=== PATIENT | male | born 1970 | race Caucasian/White ===

== ENCOUNTER 2021-01-06 19:32 | Observation (INO) | payer SELFPAY ==
[~2021-01-06] VITALS: Ht 200.7 cm; Wt 78.0 kg
--- NOTE | 2021-01-06 19:59 | NUR ---
ASSUMED CARE OF PATIENT. PATIENT REPORTS HIS COUSIN LEFT HIM AT [facility]. PT HAS SEVERAL LARGE BAGS WITH HIM INCLUDING A TENT. PT REPORTS HE WAS LIVING WITH HIS COUSIN IN [facility] [facility] BUT IS NOW HOMELESS AND HAS NO WHERE TO GO. BELONGINGS LOCKED UP SEE BELONGINGS LIST. PT REPORTS HE HAS A HISTORY OF SI, PT HAS CUT HIMSELF BEFORE. PT'S PLAN TO HURT HIMSELF IS TO SHOOT HIMSELF, BUT REPORTS HE DOES NOT HAVE A GUN. PT DOES HAVE A HISTORY OF BIPOLAR AND REPORTS HE IS ON LITHIUM. VS STABLE. SITTER AT DOOR. PT SEEN BY CYNDY GRAY. WILL CONTINUE TO MONITOR.
[2021-01-06 20:13] LABS: MEAN CORPUSCULAR HGB CONC 34.1 g/dL (33.2-36.2); MEAN PLATELET VOLUME 10.3 fL (7.4-10.4); RED BLOOD COUNT 3.71 x10^6/uL (4.38-5.82); RED CELL DISTRIBUTION WIDTH 14.9 % (9.4-14.8)
--- NOTE | 2021-01-06 20:17 | NUR ---
UA SENT. PT'S MEDICATIONS LOCKED UP IN THE PHARMACY: LITHIUM, LEVETIRACETAM
[2021-01-06] MEDS ORDERED: LITH300C PO (20:20)
[2021-01-06] MEDS ORDERED: LEVE500T22 PO (20:20)
[2021-01-06 20:25] LABS: ALANINE AMINOTRANSFERASE 38 U/L (12-78); ALBUMIN 3.3 g/dL (3.4-5.0); CALCIUM 8.6 mg/dL (8.5-10.1); CHLORIDE 106 mmol/L (98-107); CREATININE 0.71 mg/dL (0.7-1.3)
[2021-01-06 20:36] LABS: ALKALINE PHOSPHATASE 162 U/L (45-117); ANION GAP 4 mmol/L (5-15); BILIRUBIN,TOTAL 1.1 mg/dL (0.2-1.0); TOTAL PROTEIN 7.4 g/dL (6.4-8.2)
[2021-01-06 20:37] LABS: PLATELET COUNT 72 x10^3/uL (130-400)
[2021-01-06 20:38] LABS: SALICYLATE LEVEL < 1.7 mg/dL (2.8-20.0)
[2021-01-06 20:39] LABS: AMPHETAMINE SCREEN, URINE Negative (Negative); BARBITURATE SCREEN, URINE Negative (Negative); BENZODIAZEPINE SCREEN, URINE Negative (Negative); CANNABINOID SCREEN, URINE Negative (Negative); COCAINE SCREEN, URINE Negative (Negative); METHADONE SCREEN, URINE Negative (Negative); OPIATE SCREEN, URINE Negative (Negative)
[2021-01-06 20:48] LABS: BAND#(MANUAL) 0.11 x10^3/uL; BANDS%(MANUAL) 4 % (0-7); EOS#(MANUAL) 0.03 x10^3/uL (0.0-0.4); EOS% (MANUAL) 1 % (1-7); LYMPH#(MANUAL) 0.81 x10^3/uL (1-3.4); LYMPHS% (MANUAL) 30 % (22-44); MONOS#(MANUAL) 0.24 x10^3/uL (0.3-2.7); MONOS% (MANUAL) 9 % (2-9); OTHER CELLS # (MANUAL) 0.05 x10^3/uL (0-0); OTHER CELLS % (MANUAL) 2 % (0-0); SEG#(MANUAL) 1.46 x10^3/uL (1.8-6.8); SEGS% (MANUAL) 54 % (42-75)
--- NOTE | 2021-01-06 20:48 | NUR ---
PT HAS BOOKS AT BEDSIDE AND IS READING. SITTER AT DOOR. NO ACUTE DISTRESS. PT IS IN A HOSPITAL: GOWN, SOCKS AND UNDERWEAR. VS STABLE. WILL CONTINUE TO MONITOR.
[2021-01-06 20:49] LABS: <PLATELET ESTIMATE> DECREASED; <PLT MORPHOLOGY> NORMAL PLT MORPH; <RBC MORPHOLOGY> NORMAL
[2021-01-06] MEDS ORDERED: POTASSIUM CHLORIDE 20 MEQ TAB.ER.PRT PO ONE (21:00)
--- NOTE | 2021-01-06 21:39 | NUR ---
PT RESTING COMFORTABLY AND PORTABLE XRAY OF ARM DONE. SLING ORDERED BY MD. PT IN NO ACUTE DISTRESS. PROVIDED A SANDWICH AND CHIPS AND WATER FOR DINNER PT SAYS HE HASN'T EATEN. SITTER AT DOORWAY WITH EYES ON PT.
--- NOTE | 2021-01-06 21:44 | NUR ---
REPORT GIVEN TO ANNA HATCH
--- NOTE | 2021-01-06 21:55 | NUR ---
RECEIVED REPORT ABOUT PT. PER RN, PT MADE STATEMENTS THAT HE IS HOMELESS NOW, AND WANTS TO BE PUT ON AN L2K SO THAT HE HAS 72 HOURS TO SIT HERE AND THINK ABOUT WHAT HE'S GOING TO DO. SAYS HE HAS NO WHERE TO LIVE NOW, AND NEEDS A PLACE TO STAY.
--- NOTE | 2021-01-06 22:39 | NUR ---
PTS ARM PLACED IN SUGAR TONG SPLINT PER MD ORDERS. PT TOLERATED WELL. RESTING IN BED, NO CHANGE IN STATUS.
[2021-01-06] MEDS ORDERED: POTASSIUM CHLORIDE 20 MEQ TAB.ER.PRT ONE (22:44)
--- NOTE | 2021-01-06 22:48 | NUR ---
TP RN: PACKET FAXED TO [facility] [place] ONLY D/T PT IS SELF PAY
--- NOTE | 2021-01-06 23:02 | NUR ---
PT RESTING, IN NO ACUTE DISTRESS.
--- NOTE | 2021-01-07 02:42 | NUR ---
Break RN: Apple juice and sprite provided.
--- NOTE | 2021-01-07 03:38 | NUR ---
NO CHANGE IN PT STATUS. PT AWAKE AND UP TO BATHROOM, NO ISSUES. PT BACK IN BED, SITTER OUTSIDE OF DOORWAY WITH EYES ON PT. PT BACK TO SLEEP.
[2021-01-07] MEDS ORDERED: ACETAMINOPHEN 500 MG TABLET ONE (04:20)
[2021-01-07] MEDS ORDERED: ACETAMINOPHEN 500 MG TABLET PO ONE (04:30)
--- NOTE | 2021-01-07 04:42 | NUR ---
PT WOKE UP AND C/O PAIN TO HIS LEFT ARM IN A SPLINT. PA ADVISED AND MEDS ORDERED. PT MEDICATED WITH TYLENOL, SEE EMAR. AND TOLERATED WELL, AND PT WENT BACK TO SLEEP. BREAKFAST TRAY IS ORDERED FOR PT.
--- NOTE | 2021-01-07 05:12 | NUR ---
PT WOKE UP AND ASKED FOR SOME MORE SPRITE. PT PROVIDED TWO CUPS OF ICE WITH SPRITE. PT TOLERATED WELL, CONTENT AND BACK TO SLEEP. SITTER AT DOORWAY WITH EYES ON PT.
--- NOTE | 2021-01-07 06:18 | NUR ---
PT SLEEPING AT THIS TIME, NO ACUTE DISTRESS. SITTER AT DOORWAY WITH EYES ON PT.
--- NOTE | 2021-01-07 06:42 | NUR ---
Report from Lobo, pt calm cooperative. RR equal and unlabored.
[2021-01-07 07:35] VITALS: BP 135/89
--- NOTE | 2021-01-07 08:00 | NUR ---
Up to bathroom, no complaints, calm cooperative. Ordered safety tray. Sitter in line of site
--- NOTE | 2021-01-07 08:37 | NUR ---
Breakfast provided/ safety tray. Sitter in line of site.
--- NOTE | 2021-01-07 08:58 | NUR ---
Meds in pharmacy: Keppra 500mg 1 tablet BID pharmacist has a rx of lithium which pt came in with this rx is under a [facility]. When I questioned mr bruce about this he said "oh thats my cousins friend". He then shook his head no when I asked him if even took lithium.
--- NOTE | 2021-01-07 10:42 | NUR ---
Throughput: oralia Muñoz at [facility] [phone], pt to be accepted today by Dr. Givens. can be transfered after [phone]
--- NOTE | 2021-01-07 11:36 | NUR ---
Report to ANNA Naik at [facility] pt to be tx there at 1445.
--- NOTE | 2021-01-07 11:46 | NUR ---
Pt given apple sauce x2 and sprite, pt informed [facility]
--- NOTE | 2021-01-07 12:15 | NUR ---
Pt requested a bible, one was given to him.
--- NOTE | 2021-01-07 12:57 | NUR ---
Lunch provided to pt, sitter in line of site. AIDET provided.
--- NOTE | 2021-01-07 13:05 | NUR ---
Report to ANNA Young
--- NOTE | 2021-01-07 13:27 | NUR ---
REPORT OF PT FROM ANNA PLAZA. ASSUMING CARE OF PT AT THIS TIME.
== END 2021-01-07 15:45 | disposition home or self-care (01) ==
LOC: ED 20:02 → EDIP 23:01
PROVIDERS: ADMIT Emergency Medicine; ATTEND Emergency Medicine
DX: R45.851 Suicidal ideations (principal); F31.9 Bipolar disorder, unspecified; F43.12 Post-traumatic stress disorder, chronic; E87.6 Hypokalemia; S52.92XA Unspecified fracture of left forearm, initial encounter for closed fracture; F17.210 Nicotine dependence, cigarettes, uncomplicated; Z63.8 Other specified problems related to primary support group; Z91.14 Patient's other noncompliance with medication regimen; Z91.5 Personal history of self-harm; V49.9XXA Car occupant (driver) (passenger) injured in unspecified traffic accident, initial encounter; Y93.89 Activity, other specified; Y92.89 Other specified places as the place of occurrence of the external cause
CPT/HCPCS: 29125; 36415; 73090; 80053; 80299; 80307; 80320; 80329; 84443; 85025; 99284; G0378; G0480

== ENCOUNTER 2021-02-07 19:58 | Emergency (ER) | payer OTHER ==
[~2021-02-07] VITALS: Ht 200.7 cm; Wt 79.7 kg
[~2021-02-07 19:58] MED LIST: LEVE500T22 PO; LITH300C PO
[2021-02-07 21:49] LABS: BASOPHILS % (AUTO) 0 % (0-1); EOSINOPHILS % (AUTO) 5 % (1-7); LYMPHOCYTES % (AUTO) 31 % (22-44); MEAN CORPUSCULAR HEMOGLOBIN 34.8 pg (27.5-34.5); MEAN CORPUSCULAR HGB CONC 34.4 g/dL (33.2-36.2); MEAN PLATELET VOLUME 9.6 fL (7.4-10.4); MONOCYTES % (AUTO) 10 % (2-9); NEUTROPHILS % (AUTO) 54 % (42-75); PLATELET COUNT 62 x10^3/uL (130-400); RED BLOOD COUNT 3.92 x10^6/uL (4.38-5.82); RED CELL DISTRIBUTION WIDTH 14.7 % (9.4-14.8)
[2021-02-07 22:09] LABS: ALANINE AMINOTRANSFERASE 43 U/L (12-78); ALBUMIN 3.4 g/dL (3.4-5.0); CALCIUM 8.9 mg/dL (8.5-10.1)
[2021-02-07 22:11] LABS: ALKALINE PHOSPHATASE 155 U/L (45-117); BILIRUBIN,TOTAL 0.7 mg/dL (0.2-1.0)
[2021-02-07 22:29] LABS: ANION GAP 6 mmol/L (5-15); CHLORIDE 107 mmol/L (98-107)
[2021-02-07] MEDS ORDERED: ONDANSETRON 2MG/ML, 2ML ONE (23:51)
[2021-02-07] MEDS ORDERED: MORPHINE SULFATE 4 MG/ML, 1ML ONE (23:51)
[2021-02-08] MEDS ORDERED: ONDANSETRON 2MG/ML, 2ML IVPush ONE
[2021-02-08] MEDS ORDERED: MORPHINE SULFATE 4 MG/ML, 1ML IVPush ONE
[2021-02-08 00:04] VITALS: BP 121/76
--- NOTE | 2021-02-08 00:17 | NUR ---
pt c/o right lower abd pain x 2-3 weeks, worse over the past couple of days. pt resting on gurney. no distress. piv placed and medicated for pain per emar
[2021-02-08] MEDS ORDERED: OMNIPAQUE 350 MG/ML, 100ML BOTTLE ONE (00:28)
[2021-02-08 00:52] LABS: MICROSCOPIC NOT IND
== END 2021-02-08 01:49 | disposition home or self-care (01) ==
LOC: ED 23:53
DX: R10.84 Generalized abdominal pain (principal); F17.210 Nicotine dependence, cigarettes, uncomplicated
CPT/HCPCS: 36415; 74177; 76705; 80053; 81003; 83690; 85025; 96374; 96375; 99285; J2270; J2405; Q9967

== ENCOUNTER 2021-02-28 12:37 | Emergency (ER) | payer OTHER ==
[~2021-02-28] VITALS: Ht 200.7 cm; Wt 78.6 kg
[2021-02-28 13:23] VITALS: BP 123/87
--- NOTE | 2021-02-28 14:15 | NUR ---
pt ambulatory from [facility] to [facility]. pt [facility]. up for re-eval.
--- NOTE | 2021-02-28 15:05 | NUR ---
security at pts bedside to collect knife.
== END 2021-02-28 15:51 | disposition home or self-care (01) ==
LOC: ED 13:12
DX: M79.632 Pain in left forearm (principal); G89.29 Other chronic pain
CPT/HCPCS: 99283

== ENCOUNTER 2021-03-10 04:32 | Emergency (ER) | payer OTHER ==
[~2021-03-10] VITALS: Ht 200.7 cm; Wt 78.6 kg
[2021-03-10 07:54] VITALS: BP 110/87
== END 2021-03-10 09:23 | disposition home or self-care (01) ==
LOC: ED 05:03
DX: K70.9 Alcoholic liver disease, unspecified (principal); D69.6 Thrombocytopenia, unspecified; R07.89 Other chest pain; Z87.891 Personal history of nicotine dependence
CPT/HCPCS: 36415; 71045; 80053; 83605; 83690; 84484; 85025; 85610; 85730; 86850; 86900; 93005; 96365; 96366; 96375; 99285; C9113; J2405; J7030